=== PATIENT | male | born 1980 | race Caucasian/White ===

== ENCOUNTER → 2018-01-01 | Outpatient (CLI) | payer OTHER ==
--- NOTE | 2018-01-01 12:03 | US ---
EXAMINATION TYPE: US liver DATE OF EXAM: 01/01/2018 COMPARISON: NONE CLINICAL HISTORY: R74.8 Elevated liver enzymes. abnormal labs, no pain EXAM MEASUREMENTS: Liver Length: 15.4 cm Gallbladder Wall: 0.2 cm CHD: 0.3 cm Right Kidney: 10.3 x 4.9 x 4.2 cm Limited exam due to overlying bowel gas Pancreas: Obscured by bowel gas Liver: The echotexture of the liver somewhat coarse, heterogeneous, no focal mass evident Gallbladder: wnl Evidence for sonographic De Anda's sign: neg CBD: Obscured by overlying bowel gas CHD: wnl Right Kidney: wnl IMPRESSION: Exam is somewhat limited. Correlate for hepatocellular disease, hepatic steatosis
== END | disposition home or self-care (01) ==
LOC: RADUSWWP 07:42
PROVIDERS: ATTEND Family Medicine
DX: R74.8 Abnormal levels of other serum enzymes (principal)
CPT/HCPCS: 76705

== ENCOUNTER → 2018-08-01 | Day surgery (SDC) | payer BC, OTHER ==
[2018-07-30 15:20] VITALS: BMI 28.3
[~2018-08-01] MED LIST: LACTATED RINGERS 1,000 ML IV SCH; LIDOCAINE 1% INJ 10MG/ML (20 ML MDV) ONE; PROPOFOL 10 MG/ML 20 ML VIAL IV ONE; fentaNYL (PF) 50 MCG/ML 2 ML AMP ONE
[2018-08-01 11:54] VITALS: TEMP 97
--- NOTE | 2018-08-01 12:54 | P.PCN ---
Date of Procedure: 08/01/18 Description of Procedure: BRIEF HISTORY: Patient is a 37-year-old pleasant male scheduled for an elective colonoscopy as a part of hematochezia and family history of colon cancer. The patient had reported intermittent episodes of blood per rectum when seen in the office. He also reported occasional altered bowel habits, with episodes of loose stool which she attributed to dietary intake. He does have a strong family history of colon cancer with a diagnosis of colon cancer in his father in his 60s and grandfather in his 50s. PROCEDURE PERFORMED: Colonoscopy. PREOPERATIVE DIAGNOSIS: Blood per rectum, altered bowel habits, family history of colon cancer. ESTIMATED BLOOD LOSS: Minimal. IV sedation per Anesthesia. PROCEDURE: After informed consent was obtained, the patient, was brought into the endoscopy unit. IV sedation was administered by Anesthesia under continuous monitoring. Digital rectal examination was normal. Initially the Olympus CF-190 flexible video colonoscope was then inserted in the rectum, gradually advanced into the cecum without any difficulty. Careful examination was performed as the scope was gradually being withdrawn. Ileocecal valve and the appendiceal orifice were visualized and appeared normal. Prep was excellent. Mucosa of the cecum, ascending colon, transverse colon, descending colon, sigmoid colon, and rectum appeared normal. A diminutive sessile 3 mm polyp in the transverse colon was removed with cold forcep polypectomy. Random biopsies were taken of the right colon, transverse colon and left colon due to altered bowel habits. Retroflexion was performed in the rectum and no lesions were seen, internal hemorrhoids were noted. The patient tolerated the procedure well. IMPRESSION: 1. Diminutive transverse colon polyp removed with cold forcep polypectomy. 2. Internal hemorrhoids. 3. Random biopsies of the right colon, transverse colon and left colon. 4. Normal-appearing colon from rectum to cecum . RECOMMENDATIONS: Findings of this examination were discussed with the patient. Okay to resume diet. Follow-up in clinic for results of pathology. Repeat colonoscopy in 5 years. Local hemorrhoidal care if the patient's he is further bleeding.
[2018-08-01 13:20] VITALS: BP 115/77; PULSE 86; RESP 18
== END ==
LOC: ORWHC2ENDO 11:31
PROVIDERS: ATTEND Internal Medicine
DX: K63.5 Polyp of colon (principal); K64.8 Other hemorrhoids; Z80.0 Family history of malignant neoplasm of digestive organs; K21.9 Gastro-esophageal reflux disease without esophagitis; K76.0 Fatty (change of) liver, not elsewhere classified
CPT/HCPCS: 88305; 45380; J2001; J3010; J2704

== ENCOUNTER 2021-11-30 09:18 | Day surgery (SDC) | payer BC ==
[2021-11-28 16:00] VITALS: BMI 29.0
[~2021-11-30 09:18] MED LIST changes: -LIDOCAINE 1% INJ 10MG/ML (20 ML MDV) ONE; -PROPOFOL 10 MG/ML 20 ML VIAL IV ONE; -fentaNYL (PF) 50 MCG/ML 2 ML AMP ONE
[2021-11-30 10:17] VITALS: TEMP 97.1
[2021-11-30] MEDS ORDERED: PROPOFOL 10 MG/ML 20 ML VIAL IV ONE (11:07)
--- NOTE | 2021-11-30 11:24 | P.PCN ---
Date of Procedure: 11/30/21 Procedure(s) Performed: BRIEF HISTORY: Patient is a 41-year-old pleasantwhite male] scheduled for an elective colonoscopy as a part of Evaluation of intermittent rectal bleeding. He also has family history of colon cancer diagnosed in her father at age 62 and maternal grand father at age 55. PROCEDURE PERFORMED: Colonoscopy with biopsy . PREOPERATIVE DIAGNOSIS: Intermittent rectal bleeding and family history of colon cancer. IV sedation per Anesthesia. PROCEDURE: After informed consent was obtained, the patient, was brought into the endoscopy unit. IV sedation was administered by Anesthesia under continuous monitoring. Digital rectal examination was normal. Initially the Olympus CF-160 flexible video colonoscope was then inserted in the rectum, gradually advanced into the cecum without any difficulty. Careful examination was performed as the scope was gradually being withdrawn. Ileocecal valve and the appendiceal orifice were visualized and appeared normal. Prep was excellent. Mucosa of the cecum,appeared normal. In the ascending colon there was a 3 mm polyp that was removed by cold biopsy. Rest of the ascending colon, transverse colon, descending colon, sigmoid colon, and rectum appeared normal. Retroflexion was performed in the rectum and no lesions were seen. The patient tolerated the procedure well. IMPRESSION: 3 mm ascending colon polyp status post cold biopsy Rest of the colon appeared normal RECOMMENDATIONS: Findings of this examination were discussed with the patient .as well as his family. He was advised to follow with the biopsy results. If the biopsy reveals adenoma he can have a repeat colonoscopy in 5 years.
[2021-11-30 11:32] VITALS: RESP 16
[2021-11-30 11:41] VITALS: BP 107/72; PULSE 77
== END 2021-11-30 12:00 | disposition home or self-care (01) ==
LOC: ORWHC2ENDO 09:18
PROVIDERS: ATTEND Internal Medicine Gastroenterology
DX: K63.5 Polyp of colon (principal); Z80.0 Family history of malignant neoplasm of digestive organs; K21.9 Gastro-esophageal reflux disease without esophagitis; Z87.891 Personal history of nicotine dependence; Z79.899 Other long term (current) drug therapy
CPT/HCPCS: 88305; 45380; J2704

== ENCOUNTER 2022-06-11 05:00 | Emergency (ER) | payer BC ==
[2022-06-11 05:15] VITALS: RESP 16
[2022-06-11] MEDS ORDERED: ONDANSETRON 4 MG/2 ML VIAL IVP STA (05:18)
[2022-06-11] MEDS ORDERED: PANTOPRAZOLE 40 MG/10 ML VIAL IVP STA (05:18)
[2022-06-11] MEDS ORDERED: KETOROLAC 15 MG/ML 1 ML VIAL IVP STA (05:18)
[2022-06-11] MEDS ORDERED: SODIUM CHLORIDE 0.9% 1,000 ML IV STA ×2 (05:18→06:18)
[2022-06-11 06:04] LABS: Basophils # (A) 0.1 k/uL (0-0.2); Basophils % (A) 0 %; Eosinophils # (A) 0.1 k/uL (0-0.7); Eosinophils % (A) 0 %; HCT 47.5 % (39.0-53.0); HGB 16.5 gm/dL (13.0-17.5); Lymphocytes # (A) 0.8 k/uL (1.0-4.8); Lymphocytes % (A) 4 %; MCHC 34.6 g/dL (31.0-37.0); MCV 89.5 fL (80.0-100.0); Mean Platelet Volume 8.2; Monocytes # (A) 1.2 k/uL (0-1.0); Monocytes % (A) 6 %; Neutrophils # (A) 17.1 k/uL (1.3-7.7); Neutrophils % (A) 89 %; Platelet Count 255 k/uL (150-450); RBC 5.31 m/uL (4.30-5.90); WBC 19.3 k/uL (3.8-10.6)
--- NOTE | 2022-06-11 06:18 | ED ---
Abdominal Pain HPI - General Chief Complaint: Abdominal Pain Stated Complaint: vomiting; diarrhea Time Seen by Provider: 06/11/22 06:06 Source: patient, RN notes reviewed Mode of arrival: ambulatory - History of Present Illness Initial Comments: Patient is a 41-year-old male presenting to the emergency room via EMS with complaints of intermittent but severe abdominal pain with excessive amounts of nausea vomiting and diarrhea. He reports that the abdominal pain comes in waves prior to his bouts of vomiting or diarrhea. On exam he was pain-free and nausea free after receiving medication from EMS of Zofran along with additional dose of Zofran, IV Protonix, IV Toradol and a 1 L IV fluid bolus all ordered by triage and position. In addition to his abdominal pain has generalized body aches, he denies any chest pain, shortness of breath, blood or mucus in his stool, bloody emesis, hematuria, dysuria, altered mental status, fevers or chills. Have a history of GERD and intermittent rectal bleeding in which he underwent a colonoscopy last year for; he reports that his abdominal pain he is experiencing now is unlike any previous abdominal pain. He denies any history of GI bleed not related to rectal bleeding or diverticulosis. In addition to his GERD history he has past medical history significant for elevated liver enzymes. - Related Data Home Medications Medication Instructions Recorded Confirmed Fiber Tabs 1 tab PO TID 07/30/18 08/01/18 Angwin-3 Fatty Acids/Fish Oil [Fish 1 each PO DAILY 07/30/18 08/01/18 Oil 1,000 mg Softgel] ARIPiprazole [Abilify] 2 mg PO HS 11/28/21 11/28/21 Cholecalciferol [Vitamin D3 (25 150 mcg PO DAILY 11/28/21 11/28/21 Mcg = 1000 Iu)] Escitalopram [Lexapro] 10 mg PO HS 11/28/21 11/28/21 Rosuvastatin [Crestor] 20 mg PO HS 11/28/21 11/28/21 Vitamin E (Dl,Tocopheryl Acet) 1,000 unit PO 11/28/21 [Vitamin E (1000 Iu = 450 MG)] Previous Rx's Medication Instructions Recorded Ondansetron Odt [Zofran Odt] 4 mg PO Q8HR PRN 7 Days #21 tab 06/11/22 Allergies Allergy/AdvReac Type Severity Reaction Status Date / Time No Known Allergies Allergy Verified 06/11/22 05:15 Review of Systems ROS Statement: Those systems with pertinent positive or pertinent negative responses have been documented in the HPI. ROS Other: All systems not noted in ROS Statement are negative. Past Medical History Past Medical History: GERD/Reflux Additional Past Medical History / Comment(s): ELEVATED LIVER ENZYMES. HX BLOOD IN STOOL. History of Any Multi-Drug Resistant Organisms: None Reported Past Surgical History: Tonsillectomy Additional Past Surgical History / Comment(s): VASECTOMY, COLONOSCOPY Past Anesthesia/Blood Transfusion Reactions: Postoperative Nausea & Vomiting (PONV) Past Psychological History: Depression Smoking Status: Former smoker Past Alcohol Use History: Occasional Past Drug Use History: None Reported - Past Family History Father Family Medical History: Cancer Additional Family Medical History / Comment(s): COLON CANCER / GRANDFATHER- COLON CANCER General Exam - General Exam Comments Initial Comments: GENERAL: No acute distress, well developed, well nourished. Appears fatigued. HEENT: Normocephalic, atraumatic. Pupils equal, round, reactive to light. Moist mucous membranes. LUNGS: No respiratory distress. Clear to auscultation, no adventitious sounds, no use of accessory muscles. HEART: Regular rate and rhythm without murmur, rub, or gallop. ABDOMEN: Normal bowel sounds. Soft, non-tender, non-distended. BACK: Normal inspection. EXTREMITIES: No edema. No tenderness. Moves all extremities. NEUROLOGIC: Alert & oriented x 3. CN II-XII grossly intact. PSYCHIATRIC: Normal affect and behavior. DERMATOLOGIC: Skin intact, without rashes or lesions noted. Course Vital Signs 06/11/22 06/11/22 05:03 06:42 Temperature 97.5 F L 98.3 F Pulse Rate 99 99 Respiratory 16 16 Rate Blood Pressure 109/63 108/67 O2 Sat by Pulse 93 L 98 Oximetry Medical Decision Making - Medical Decision Making Was pt. sent in by a medical professional or institution (, PA, CUT PRESSMAN, urgent care, hospital, or penitentiary...) When possible be specific @ -No Did you speak to anyone other than the patient for history (EMS, parent, family, police, friend...)? What history was obtained from this source @ -No Did you review nursing and triage notes (agree or disagree)? Why? @ -I reviewed and agree with nursing and triage notes except patient reports multiple episodes of vomiting in addition to diarrhea. Were old charts reviewed (outside hosp., previous admission, EMS record, old EKG, old radiological studies, urgent care reports/EKG's, penitentiary records)? Report findings @ -Colonoscopy report completed November 2021 Differential Diagnosis (chest pain, altered mental status, abdominal pain women, abdominal pain men, vaginal bleeding, weakness, fever, dyspnea, syncope, headache, dizziness, GI bleed, back pain, seizure, CVA, palpatations, mental health)? @ -Differential Abdominal Pain Men: Appendicitis, cholecystitis, diverticulosis, ischemic bowel, pancreatitis, hepatitis, UTI, gastroenteritis, AAA, incarcerated hernia, bowel obstruction, constipation, inflammatory bowel, hepatitis, peptic ulcer disease, splenic infarction, perforated viscus, testicular torsion, this is not meant to be an all-inclusive list EKG interpreted by me (3pts min.). @ -Sinus tachycardia, ventricular rate 3 beats for minute, RI interval 132 ms, QRS duration 106 ms, QT/QTC 357/470 ms, RI T axis XLV, 51, 50 X-rays interpreted by me (1pt min.). @ -None done CT interpreted by me (1pt min.). @ -CT of the abdomen and pelvis with contrast demonstrates no acute abnormal abdominal findings. No obstruction, no free fluid in the abdomen, no abscess or bowel dilatation noted. U/S interpreted by me (1pt. min.). @ -None done What testing was considered but not performed or refused? (CT, X-rays, U/S, labs)? Why? @ -None What meds were considered but not given or refused? Why? @ -None Did you discuss the management of the patient with other professionals (professionals i.e. , PA, CUT PRESSMAN, lab, RT, psych nurse, social media director, sprinkler irrigation equipment mechanic, teacher, diplomatic officer, pillowcase cleaner)? Give summary @ -No Was smoking cessation discussed for >3mins.? @ -No Was critical care preformed (if so, how long)? @ -No Were there social determinants of health that impacted care today? How? (Homelessness, low income, unemployed, alcoholism, drug addiction, tra nsportation, low edu. Level, literacy, decrease access to med. care, [facility] [facility], rehab)? @ -No Was there de-escalation of care discussed even if they declined (Discuss DNR or withdrawal of care, Hospice)? DNR status @ -No What co-morbidities impacted this encounter? (DM, HTN, Smoking, COPD, CAD, Cancer, CVA, ARF, Chemo, Hep., AIDS, mental health diagnosis, sleep apnea, morbid obesity)? @ -None Was patient admitted / discharged? Hospital course, mention meds given and route, prescriptions, significant lab abnormalities, going to OR and other pertinent info. @ - 41-year-old male presenting to the emergency room with intermittent severe abdominal pain with associated nausea vomiting and diarrhea within the last 24 hours. Currently resting comfortably with negative exam. Patient has received medications ordered by triaging physician of Zofran, Protonix, Toradol, and IV fluids. He also receives Zofran from EMS. Workup orders of EKG, CMP, CBC, lactic acid, amylase, lipase and CT of the abdomen pelvis with contrast ordered and in process from triaging physician. Dry mucous membranes will give additional 1 L fluid bolus. Laboratory studies reveal elevated white blood cell count at 19.3 no anemia. CMP with low bicarbonate at 20 remaining electrolytes normal, normal renal function, a LT slightly elevated at 68; at baseline, AST normal, amylase, lipase and alk phos normal. Lactic acid slightly elevated at 2.9. CT of the abdomen and pelvis demonstrates no acute abdominal process. Findings discussed with patient and spouse at bedside. Much improved after medications. No indication for further diagnostic imaging or laboratory studies at this time. Education regarding nausea vomiting and diarrhea discussed at length. Encouraged good hydration along with symptomatic management. Advise follow-up with patient's primary care provider and reviewed return parameters. Will discharge home in stable condition with Zofran to be utilize for nausea as needed. Undiagnosed new problem with uncertain prognosis? @ -No Drug Therapy requiring intensive monitoring for toxicity (Heparin, Nitro, Insuli n, Cardizem)? @ -No Were any procedures done? @ -No Diagnosis/symptom? @ -Nausea vomiting and diarrhea Acute, or Chronic, or Acute on Chronic? @ -Acute Uncomplicated (without systemic symptoms) or Complicated (systemic symptoms)? @ -Uncomplicated Side effects of treatment? @ -No Exacerbation, Progression, or Severe Exacerbation? @ -No Poses a threat to life or bodily function? How? (Chest pain, [place], [place], pneumonia, PE, COPD, DKA, ARF, appy, cholecystitis, CVA, Diverticulitis, Homicidal, Suicidal, threat to staff... and all critical care pts) @ -No. Case discussed with Dr. Lara. - Lab Data Result diagrams: 06/11/22 05:23 06/11/22 05:23 Lab Results 06/11/22 06/11/22 06/11/22 Range/Units 05:23 05:23 05:23 WBC 19.3 H (3.8-10.6) k/uL RBC 5.31 (4.30-5.90) m/uL Hgb 16.5 (13.0-17.5) gm/dL Hct 47.5 (39.0-53.0) % MCV 89.5 (80.0-100.0) fL MCH 31.0 (25.0-35.0) pg MCHC 34.6 (31.0-37.0) g/dL RDW 12.0 (11.5-15.5) % Plt Count 255 (150-450) k/uL MPV 8.2 Neutrophils % 89 % Lymphocytes % 4 % Monocytes % 6 % Eosinophils % 0 % Basophils % 0 % Neutrophils # 17.1 H (1.3-7.7) k/uL Lymphocytes # 0.8 L (1.0-4.8) k/uL Monocytes # 1.2 H (0-1.0) k/uL Eosinophils # 0.1 (0-0.7) k/uL Basophils # 0.1 (0-0.2) k/uL Sodium 139 (137-145) mmol/L Potassium 4.3 (3.5-5.1) mmol/L Chloride 106 (98-107) mmol/L Carbon Dioxide 20 L (22-30) mmol/L Anion Gap 13 mmol/L BUN 18 (9-20) mg/dL Creatinine 1.05 (0.66-1.25) mg/dL Est GFR (CKD-EPI)AfAm >90 (>60 ml/min/1.73 sqM) Est GFR (CKD-EPI)NonAf 89 (>60 ml/min/1.73 sqM) Glucose 156 H (74-99) mg/dL Plasma Lactic Acid Brian 2.9 H* (0.7-2.0) mmol/L Calcium 9.3 (8.4-10.2) mg/dL Total Bilirubin 0.9 (0.2-1.3) mg/dL AST 39 (17-59) U/L ALT 68 H (4-49) U/L Alkaline Phosphatase 91 (38-126) U/L Total Protein 7.9 (6.3-8.2) g/dL Albumin 4.9 (3.5-5.0) g/dL Amylase 59 (30-110) U/L Lipase 66 (23-300) U/L - Radiology Data Radiology results: report reviewed, image reviewed Disposition Clinical Impression: Nausea vomiting and diarrhea Disposition: HOME SELF-CARE Condition: Stable Instructions (If sedation given, give patient instructions): Acute Nausea and Vomiting (ED) Additional Instructions: Please utilize Zofran for nausea and vomiting as needed. Will stay well hydrated with water and electrolyte drinks. Encouraged soft or bland diet with progression as tolerated. Please follow-up with your primary care provider. Please return to the Emergency Department if symptoms worsen or any other concerns. Prescriptions: Ondansetron Odt [Zofran Odt] 4 mg PO Q8HR PRN 7 Days #21 tab PRN Reason: Nausea Is patient prescribed a controlled substance at d/c from ED?: No Referrals: Wicho Collins MD [Primary Care Provider] - 1-2 days Time of Disposition: 07:40
[2022-06-11 06:20] LABS: ALT 68 U/L (4-49); AST 39 U/L (17-59); African American GFR (CKD) >90 (>60 ml/min/1.73 sqM); Albumin 4.9 g/dL (3.5-5.0); Alkaline Phosphatase 91 U/L (38-126); Amylase 59 U/L (30-110); Anion Gap 13 mmol/L; Blood Urea Nitrogen 18 mg/dL (9-20); Calcium 9.3 mg/dL (8.4-10.2); Carbon Dioxide 20 mmol/L (22-30); Chloride 106 mmol/L (98-107); Glucose 156 mg/dL (74-99); Lipase 66 U/L (23-300); Non-African American GFR(CKD) 89 (>60 ml/min/1.73 sqM); Potassium 4.3 mmol/L (3.5-5.1); Sodium 139 mmol/L (137-145); Total Bilirubin 0.9 mg/dL (0.2-1.3); Total Protein 7.9 g/dL (6.3-8.2)
[2022-06-11 06:42] VITALS: TEMP 98.3
--- NOTE | 2022-06-11 07:29 | CT ---
EXAMINATION TYPE: CT abdomen pelvis w con CT DLP: 1482.3 mGycm, Automated exposure control for dose reduction was used. DATE OF EXAM: 06/11/2022 7:16 AM COMPARISON: None CLINICAL INDICATION:Male, 41 years old with history of abdominal pain; N/V TECHNIQUE: Axial CT of the abdomen and pelvis. Sagittal and coronal reformats were created on a [employer] workstation. Contrast used:100ML mL of Isovue 300 with IV Contrast, Oral contrast used: without Oral Contrast FINDINGS: LOWER CHEST: Bilateral gynecomastia changes. ABDOMEN LIVER: Unremarkable GALLBLADDER AND BILE DUCTS: Unremarkable. PANCREAS: Unremarkable. SPLEEN: Unremarkable. ADRENAL GLANDS: Unremarkable. KIDNEYS AND URETERS: No evidence of hydronephrosis or renal calculus. The ureters are unremarkable. PELVIS BLADDER: Unremarkable REPRODUCTIVE: Unremarkable. ABDOMEN & PELVIS STOMACH AND BOWEL: The stomach and duodenum are within normal limits. No evidence of bowel obstructio n. Appendix is normal. PERITONEUM/RETROPERITONEUM: No evidence of pneumoperitoneum or free fluid. . VASCULATURE: No evidence of aortic aneurysm. MUSCULOSKELETAL: No acute osseous abnormalities LYMPH NODES: No gross evidence for lymphadenopathy. SOFT TISSUE/ABDOMINAL WALL: Fat-containing umbilical hernia. Bilateral fat-containing inguinal hernia s. IMPRESSION: 1. No evidence for acute abdominal process. 2. Fat-containing inguinal hernias and a umbilical hernia.
[2022-06-11] MEDS ORDERED: ONDANSETRON 4 MG ODT STARTER PACK 2 TAB BTL PO STA (07:39)
[2022-06-11 08:11] VITALS: BP 96/47; PULSE 90
== END 2022-06-11 08:16 | disposition home or self-care (01) ==
LOC: EC 05:00
DX: R11.2 Nausea with vomiting, unspecified (principal); R19.7 Diarrhea, unspecified; F32.A Depression, unspecified; Z90.89 Acquired absence of other organs; Z79.899 Other long term (current) drug therapy; Z87.891 Personal history of nicotine dependence
CPT/HCPCS: 36415; 93005; 80053; 82150; 83605; 83690; 85025; 74177; 99285; 96374; 96375; 96361; J2405; J1885; S0119; C9113; Q9967

== ENCOUNTER → 2023-08-14 | Outpatient (CLI) | payer BC ==
--- NOTE | 2023-08-14 13:12 | CA ---
Exercise Stress Test Report Name: Brad Douglas Exam Date: 08/14/2023 08:47 Exam Location: [facility] Ht (in): 73 Wt (lb): 215 BSA: 2.22 Ordering Phys: Wicho Collins MD Referring Phys: Wicho Collins MD Technologist: EDER [place] Age: 42 Gender: M : 1980 Procedure CPT: Indications: E78.5 hyperlipidemia ICD-10 Codes: Patient History: CP, WALTER, CHOL, TOB Medications: CRESTOR, WELLBUTRIN, TESTOSTERONE Meds past 24 hrs: Pretest Chest Pain: STRESS TEST Lemuel Protocol Exercise Duration (min:sec): 09:[address] Depressions (mm): Angina Score: Tong Score: Resting HR (bpm): 92 Peak HR (bpm): 152 Resting BP (mmHg): 106 / 84 Peak BP (mmHg): 162 / 69 MPHR: 179 Target HR: 152 % MPHR: 85 METS: 10.7 Total Dose: Peak Dose: Atropine: Double Product: 83740 BP Response: Stress Termination: Reached target heart rate Stress Symptoms: Dyspnea Stress Summary: ECG ANALYSIS Resting ECG: Stress ECG: CONCLUSIONS Patient underwent exercise stress EKG with a Lemuel protocol treadmill stress test. Patient exercised into Stage 3 for a total of 9 minutes and 17 seconds reaching a total of 10.7 METS. Patient's maximum heart rate was 152 which represented 84% age- predicted maximum heart rate. Stress EKG findings: At baseline patient's EKG showed normal sinus rhythm, normal axis, no significant ST or T wave abnormalities. At peak exercise, EKG showed no significant change from baseline. Conclusions: 1. Technically inadequate stress test given inability to reach 85% maximum predicted heart rate 2. However at 84% maximum predicted heart rate, normal EKG response to exercise without evidence of inducible ischemia. 3. Good exercise capacity. Dr. Ancelmo Hope DO (Electronically Signed) Final Date: 14 August 2023 13:11
== END | disposition home or self-care (01) ==
LOC: RADNMMAIN 08:24
PROVIDERS: ATTEND Family Medicine
DX: E78.5 Hyperlipidemia, unspecified (principal)
CPT/HCPCS: 93017

== ENCOUNTER → 2024-04-15 | Outpatient (CLI) | payer BC ==
[2024-04-15 15:17] VITALS: BP 111/74; PULSE 78; RESP 16; TEMP 97.8
--- NOTE | 2024-04-15 16:08 | P.SLEEP ---
History of Present Illness H&P Date: 04/15/24 This is a 43-year-old male patient known was referred to me due to concerns of obstructive sleep apnea. This is the patient's second evaluation. I met this patient back in 2020 and at that time he had a convincing history of obstructive sleep apnea the patient reported snoring loudly and stops breathing in the middle of the night and he came in with a strong family history of obstructive sleep apnea and this involves his father and uncles. At that time, the patient underwent a home sleep study, specifically on 10/04/2020, and a home sleep study showed no evidence of any significant sleep breathing disorder. His apnea hypopnea index was 2.8 and he demonstrated no significant nocturnal oxygen desaturations. As such, no treatment was offered. Over the past few years, his condition has gotten worse. He has become more tired and sleepy. He reports that his sleep quality is poor. He has been sleeping longer hours and despite that he is not getting refreshment that he expects. He is going to bed at around midnight and he has to get up at around 8:00 in the morning to be at work. 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 He comes back home during lunch hours and he takes a nap and sometimes this extends to 2 hours. As such, he is concerned his with excessive daytime fatigue and sleepiness. His current Saugerties score is a 13/24. He is also concerned about his loud snoring if the patient is unable to sleep next to his due to this problem. No reported restlessness in his lower extremities. He has no history of grinding of the teeth. No sleepwalking. No sleep talking. Denies having any dry mouth in the morning and he is a nose breather. He does sleep on his sides. No history of substance abuse. No history of alcoholism. He has history of chronic depression and anxiety and the patient has been treated with hydroxyzine. More recently, was seen by cardiology and he had an extensive cardiac evaluation and the patient was found to have mild impairment of the LV function and echocardiogram showed a ejection fraction of 40 to 45%. Stress test was negative. Based on all this, he was referred for a reevaluation. No reported hypnagogic hallucination. No sleep paralysis. No cataplexy. No head trauma. No history of meningitis. No history of stroke. No history of any atrial fibrillation. He of hypothyroidism. He has hyperlipidemia maintained on statins. Review of Systems Constitutional: Reports daytime sleepiness, Reports fatigue, Reports lethargy, Reports weight gain Eyes: denies as per HPI, denies blurred vision, denies bulging eye, denies decreased vision, denies diplopia, denies discharge, denies dry eye, denies irritation, denies itching, denies pain, denies photophobia, denies loss of peripheral vision, denies loss of vision, denies tunnel vision/blind spots Ears: deny: decreased hearing, ear discharge, earache, tinnitus Ears, nose, mouth and throat: Reports as per HPI Breasts: absent: as per HPI, gynecomastia Cardiovascular: Reports as per HPI Respiratory: Reports snoring Gastrointestinal: Reports as per HPI Genitourinary: Reports as per HPI Musculoskeletal: Reports as per HPI Musculoskeletal: absent: ankle pain, ankle stiffness, ankle swelling, as per HPI, elbow pain, elbow stiffness, elbow swelling, foot pain, foot stiffness, foot swelling, hand pain, hand stiffness, hand swelling, hip pain, hip stiffness, hip swelling, knee pain, knee stiffness, knee swelling, shoulder pain, shoulder stiffness, shoulder swelling, wrist pain, wrist stiffness, wrist swelling Integumentary: Reports as per HPI Neurological: Reports as per HPI Psychiatric: Reports anxiety, Reports depression, Reports hypersomnia, Reports sleep disturbances Endocrine: Reports as per HPI, Reports fatigue Hematologic/Lymphatic: Reports as per HPI Allergic/Immunologic: Reports as per HPI Past Medical History Past Medical History: GERD/Reflux Additional Past Medical History / Comment(s): Chronic anxiety and depression, CHF with mild impairment of the LV function and ejection fraction ratio 40-45 percent History of Any Multi-Drug Resistant Organisms: None Reported Past Surgical History: Tonsillectomy Additional Past Surgical History / Comment(s): VASECTOMY, COLONOSCOPY Past Anesthesia/Blood Transfusion Reactions: Postoperative Nausea & Vomiting (PONV) Past Psychological History: Anxiety, Depression Smoking Status: Former smoker Past Alcohol Use History: Occasional Additional Past Alcohol Use History / Comment(s): STARTED SMOKING 2014 QUIT 2016. SMOKED 3-4CIG PER DAY Past Drug Use History: None Reported - Past Family History Father Family Medical History: Cancer, GERD/Reflux, Sleep Apnea/CPAP/BIPAP Additional Family Medical History / Comment(s): COLON CANCER / GRANDFATHER- COLON CANCER, snoring Mother Family Medical History: Hyperlipidemia Medications and Allergies Home Medications Medication Instructions Recorded Confirmed Type Fiber Tabs 1 tab PO TID 07/30/18 08/01/18 History [place]-3 Fatty Acids/Fish Oil [Fish 1 each PO DAILY 07/30/18 08/01/18 History Oil 1,000 mg Softgel] ARIPiprazole [Abilify] 2 mg PO HS 11/28/21 11/28/21 History Cholecalciferol [Vitamin D3 (25 150 mcg PO DAILY 11/28/21 11/28/21 History Mcg = 1000 Iu)] Escitalopram [Lexapro] 10 mg PO HS 11/28/21 11/28/21 History Rosuvastatin [Crestor] 20 mg PO HS 11/28/21 04/15/24 History Vitamin E (Dl,Tocopheryl Acet) 1,000 unit PO 11/28/21 History [Vitamin E (1000 Iu = 450 MG)] Ondansetron Odt [Zofran Odt] 4 mg PO Q8HR PRN 7 Days #21 tab 06/11/22 Rx Hydroxychloroquine Sulfate 200 mg PO ONCE PRN 04/15/24 04/15/24 History [Plaquenil] Allergies Allergy/AdvReac Type Severity Reaction Status Date / Time No Known Allergies Allergy Verified 06/11/22 05:15 Physical Exam Vitals: Vital Signs Temp Pulse Resp BP Pulse Ox 04/15/24 15:15 97.8 F 78 16 111/74 96 Intake and Output 04/15/24 04/15/24 04/15/24 06:59 14:59 22:59 Other: Weight 96.162 kg The patient appeared well nourished and normally developed. Vital signs as documented. The patient has a body mass index of 28.4. His current weight is 212 pounds. Head exam is unremarkable. No scleral icterus or corneal arcus noted. Neck is without jugular venous distension, thyromegaly, or carotid bruits. Carotid upstrokes are brisk bilaterally. Mallampati class IV with significant crowding of posterior pharynx. Lungs are clear to auscultation and percussion. Cardiac exam reveals the PMI to be normally sized and situated. Rhythm is regular. First and second heart sounds normal. No murmurs, rubs or gallops. Abdominal exam reveals normal bowel sounds, no masses, no organomegaly and no aortic enlargement. Extremities are nonedematous and both femoral and pedal pulses are normal. Examination of the skin revealed no evidence of significant rashes, suspicious appearing nevi or other concerning lesions. Neurologically, the patient is awake and alert and the patient does not have any focal neurological deficit. Cranial nerves are essentially intact. Assessment and Plan Plan: Chronic hypersomnia with an Saugerties score of 13/24 along with symptoms of chronic fatigue and feeling unrefreshed despite taking extended number of hours of sleep. Sleep apnea is obviously a concern as the patient has loud snoring and witnessed apneas. Nevertheless, the home sleep study was done back in 2020 showed no evidence of any obstructive sleep apnea and the patient had an AHI of 2.8. There was no evidence of any significant nocturnal oxygen saturation based on the previous home sleep study. His weight has remained stable and the patient carries a body mass index of 28.4. The patient was referred to me for evaluation. No other obvious causes for chronic fatigue and sleepiness. He has chronic anxiety and depression. Chronic anxiety Chronic depression CHF with mild impairment of the LV function with an ejection fraction of 40 to 45% Hepatic steatosis Hyperlipidemia, currently on statins. Plan The patient will need further investigation. Obviously, the original sleep study was nondiagnostic. This point and based on his ongoing symptoms, the patient deserves further evaluation. I am recommending to do a pulmonary polysomnography to evaluate his sleep efficiency, architecture, and rule out sleep breathing disorder or any other pathology that may be potentially contributing to his daytime symptoms. He will also need a secondary MSLT study should the polysomnography showed no significant pathology. Sleep hygiene measures are good Patient is averaging more than 8-9 hours of sleep on a daily basis Will review the polysomnography and will report results back to his primary care and budget director. Further recommendations based on the above-mentioned studies. Sleep Note - Sleep Data ESS Total: 13 - Sleep Note Sleep Note: Temperature: 97.8 F Pulse Rate: 78 Respiratory Rate: 16 Blood Pressure: 111/74 SpO2: 96 Height: 6 ft 0.2 in Weight: 96.162 kg BMI: Neck Circumference: 16.5
== END ==
LOC: 3 N SLEEP 13:46
PROVIDERS: ATTEND Internal Medicine Critical Care Medicine
DX: G47.33 Obstructive sleep apnea (adult) (pediatric) (principal); F41.9 Anxiety disorder, unspecified; F32.A Depression, unspecified; I50.9 Heart failure, unspecified; E88.89 Other specified metabolic disorders; E78.5 Hyperlipidemia, unspecified; Z87.891 Personal history of nicotine dependence
CPT/HCPCS: 99211

== ENCOUNTER 2024-05-21 19:42 | Outpatient (CLI) | payer BC ==
--- NOTE | 2024-05-27 06:41 | P.PCN ---
Date of Procedure: 05/21/24 Operative Findings: Polysomnography report Date of service is 05/21/2024 History This is a 43-year-old male patient known was referred to me due to concerns of obstructive sleep apnea. This is the patient's second evaluation. I met this patient back in 2020 and at that time he had a convincing history of obstructive sleep apnea the patient reported snoring loudly and stops breathing in the middle of the night and he came in with a strong family history of obstructive sleep apnea and this involves his father and uncles. At that time, the patient underwent a home sleep study, specifically on 10/04/2020, and a home sleep study showed no evidence of any significant sleep breathing disorder. His apnea hypopnea index was 2.8 and he demonstrated no significant nocturnal oxygen desaturations. As such, no treatment was offered. Over the past few years, his condition has gotten worse. He has become more tired and sleepy. He reports that his sleep quality is poor. He has been sleeping longer hours and despite that he is not getting refreshment that he expects. He is going to bed at around midnight and he has to get up at around 8:00 in the morning to be at work. 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 He comes back home during lunch hours and he takes a nap and sometimes this extends to 2 hours. As such, he is concerned his with excessive daytime fatigue and sleepiness. His current Lecompton score is a 13/24. He is also concerned about his loud snoring if the patient is unable to sleep next to his due to this problem. No reported restlessness in his lower extremities. He has no history of grinding of the teeth. No sleepwalking. No sleep talking. Denies having any dry mouth in the morning and he is a nose breather. He does sleep on his sides. No history of substance abuse. No history of alcoholism. He has history of chronic depression and anxiety and the patient has been treated with hydroxyzine. More recently, was seen by cardiology and he had an extensive cardiac evaluation and the patient was found to have mild impairment of the LV function and echocardiogram showed a ejection fraction of 40 to 45%. Stress test was negative. Based on all this, he was referred for a reevaluation. No reported hypnagogic hallucination. No sleep paralysis. No cataplexy. No head trauma. No history of meningitis. No history of stroke. No history of any atrial fibrillation. He of hypothyroidism. He has hyperlipidemia maintained on statins. Physical findings The patient's weight is 212 pounds with a body mass index of 28.6 Technical description The patient was studied using a standard complex polysomnography protocol that included recording of the Lead II EKG, Central, occipital and frontal EEG, right and left outer canthus EOG, submental EMG, right and left anterior tibialis EMG, respiratory airflow by thermocouple and or pressure/flow transducer, respiratory efforts by abdominal and thoracic PVDF belts, oxygen saturation by cable oximetry. Position by observation synchronized the PSG. Equipment used: Modti. Sleep architecture The total recording duration was 485.5 minutes. The total sleep time was 244.5 minutes. The wake after sleep onset time was 185.5 minutes. The overall sleep efficiency was 50.4%. Latency to sleep onset was 56.5 minutes. The sleep architecture was characterized by 10.4% stage I, 74.0% stage II, 0% stage III and 17% REM sleep. The total arousal index was 7.1 Respiratory summary The sleep study showed a total of 20 obstructive events of which 4 were obstructive apneas, 0 were mixed apneas and 16 obstructive hypopneas. The resulting AHI was 3.7. No central apneas were noted Oxygenation analysis The patient had the baseline pulse ox of 94% with a minimum pulse ox of 88% during sleep and the patient spent approximately 3 minutes of the sleep time below pulse ox of 89%. Arousal events The total number of arousals were 29 with an index of 7.1. The respiratory arousal index was 1.0 Periodic limb movement summary None Cardiac summary Average heart rate was 78 with a minimum heart rate of 73 and a maximum heart rate of 88 Assessment No evidence of any significant sleep breathing disorder. The patient is AHI is 3.7. This patient suffers from chronic hypersomnia with an Lecompton score of 13/24 along with symptoms of chronic fatigue and feeling unrefreshed despite taking extended number of hours of sleep. The previous home sleep study was done back in 2020 showed no evidence of any obstructive sleep apnea and the patient had an AHI of 2.8. There was no evidence of any significant nocturnal oxygen saturation based on the previous home sleep study. His weight has remained stable and the patient carries a body mass index of 28.4. No other obvious causes for chronic fatigue and sleepiness. He has chronic anxiety and depression. Chronic anxiety Chronic depression CHF with mild impairment of the LV function with an ejection fraction of 40 to 45% Hepatic steatosis Hyperlipidemia, currently on statins. Plan This is a negative study for sleep apnea Sleep hygiene measures are good Patient is averaging more than 8-9 hours of sleep on a daily basis Consider stimulant therapy should the patient continue to be somnolent and sleepy during the day Will discuss finding will continue to follow.
== END 2024-05-22 05:45 | disposition home or self-care (01) ==
LOC: 3 N SLEEP 19:42
PROVIDERS: ATTEND Internal Medicine Critical Care Medicine
DX: G47.10 Hypersomnia, unspecified (principal); R53.83 Other fatigue; F41.9 Anxiety disorder, unspecified; F32.A Depression, unspecified; I50.9 Heart failure, unspecified; K76.0 Fatty (change of) liver, not elsewhere classified; E78.5 Hyperlipidemia, unspecified; Z87.891 Personal history of nicotine dependence; Z79.899 Other long term (current) drug therapy
CPT/HCPCS: 95810